=== PATIENT | male | born 1975 | race Caucasian/White ===

== ENCOUNTER 2019-04-12 17:33 | Emergency (ER) | payer BC, OTHER ==
--- NOTE | 2019-04-12 19:48 | CT ---
CT BRAIN WITHOUT CONTRAST: HISTORY: Altered mental status, injury FINDINGS: No evidence of acute infarct, hemorrhage, midline shift or abnormal extra-axial fluid collections is seen. The ventricular size is appropriate and the basilar cisterns are patent. The bony calvarium is intact. The visualized paranasal sinuses and mastoid air cells are well aerated. IMPRESSION: No CT evidence of acute intracranial process.
== END 2019-04-12 20:36 | disposition home or self-care (01) ==
LOC: ERS 17:33
DX: S06.0X0A Concussion without loss of consciousness, initial encounter (principal); W20.8XXA Other cause of strike by thrown, projected or falling object, initial encounter
CPT/HCPCS: 70450